=== PATIENT | female | born 1950 | race American Indian/Alaskan Native ===

== ENCOUNTER 2019-05-14 09:29 | Outpatient (CLI) | payer BC | END 2019-05-14 09:30 | disposition home or self-care (01) | LOC: LAB 09:29 | PROVIDERS: ATTEND Internal Medicine | DX: E11.9 Type 2 diabetes mellitus without complications (principal) | CPT/HCPCS: 36415; 83036 ==

== ENCOUNTER 2020-01-10 07:30 | Outpatient (CLI) | payer BC, MEDICARE ==
[2020-01-10 09:31] LABS: Hepatitis C Virus Antibody Non-Reactive (NonReactive)
== END 2020-01-10 07:31 | disposition home or self-care (01) ==
LOC: LAB 07:30
PROVIDERS: ATTEND Obstetrics & Gynecology
DX: Z11.3 Encounter for screening for infections with a predominantly sexual mode of transmission (principal)
CPT/HCPCS: 36415; 86592; 86689; 86706; 86803

== ENCOUNTER 2021-06-24 06:52 | Outpatient (CLI) | payer BC, MEDICARE ==
--- NOTE | 2021-06-24 10:11 | XRay Report ---
BILATERAL FEET 6 VIEWS VIEWS 0915 INDICATION: N79.59 D49.2 COMPARISON: None available. FINDINGS: On the right prominent tarsal degenerative changes seen. Mild posterior and minimal inferio r calcaneal spurring. Mild first metatarsophalangeal joint arthritic change without significant hallu x valgus though with small bony bunion medially. No fractures or dislocations. No erosive changes. No soft tissue gas or foreign bodies. On the left no fractures or dislocations. No soft tissue gas or foreign bodies. No erosive changes. P rominent tarsal degenerative changes. Moderate posterior and mild inferior calcaneal spurring. Signer Name: Ezio Stewart MD Signed: 06/24/2021 10:06 AM Workstation Name: [id number]
== END 2021-06-24 06:53 | disposition home or self-care (01) ==
LOC: XRAY 06:52
PROVIDERS: ATTEND Podiatrist Foot & Ankle Surgery
DX: M19.042 Primary osteoarthritis, left hand (principal); M19.041 Primary osteoarthritis, right hand; M79.89 Other specified soft tissue disorders; D49.2 Neoplasm of unspecified behavior of bone, soft tissue, and skin; M77.32 Calcaneal spur, left foot; M77.31 Calcaneal spur, right foot